=== PATIENT | female | born 1945 | race Caucasian/White ===

== ENCOUNTER → 2025-03-15 06:35 | Outpatient (REF) | payer MEDICARE, OTHER, SELFPAY | LOC: RAD 06:35 | PROVIDERS: ATTENDING PHYSICIAN Physician Assistant; FAMILY PHYSICIAN Family Medicine | DX: M19.072 Primary osteoarthritis, left ankle and foot (principal); M79.672 Pain in left foot; M25.572 Pain in left ankle and joints of left foot | CPT/HCPCS: 73610; 73630 ==